=== PATIENT | female | born 1930 | race Caucasian/White ===

== ENCOUNTER 2018-07-10 10:53 | Emergency (ER) | payer MEDICARE, BC ==
[~2018-07-10] VITALS: Ht 170.2 cm; Wt 50.0 kg
[2018-07-10] MEDS ORDERED: TETanus/Pertussis (Acell)/Diphther VAC/PF (Tdap-Adult) 0.5ml syringe IM ONE (11:25)
[2018-07-10] MEDS ORDERED: LIDOcaine 1% w/epiNEPHrine 1:200,000 30ml vial IM ONE (11:25)
[2018-07-10 14:39] VITALS: BP 135/87
== END 2018-07-10 14:48 | disposition home or self-care (01) ==
LOC: ER 10:54
DX: S01.01XA Laceration without foreign body of scalp, initial encounter (principal); S61.512A Laceration without foreign body of left wrist, initial encounter; S09.90XA Unspecified injury of head, initial encounter; Z88.1 Allergy status to other antibiotic agents; W19.XXXA Unspecified fall, initial encounter; Y93.89 Activity, other specified; Y92.091 Bathroom in other non-institutional residence as the place of occurrence of the external cause; Y99.8 Other external cause status
CPT/HCPCS: 70450; 72125; 72128; 72131; 90471; 90715; 93005; 99284; J3490